=== PATIENT | male | born 1960 | race Caucasian/White ===

== ENCOUNTER 2021-12-22 23:09 | Inpatient (IN) | payer OTHER ==
[~2021-12-22] VITALS: Ht 182.9 cm; Wt 105.7 kg
[2021-12-22 23:28] LABS: HEMOGLOBIN 15.4 gm/dl (14.0-17.5); RED BLOOD COUNT 5.13 M/UL (4.20-5.50); WHITE BLOOD COUNT 14.8 K/UL (4.5-11.0)
[2021-12-23 00:07] LABS: BUN/CREATININE RATIO 11 (0-10)
== END 2021-12-23 07:05 | disposition expired | DRG 871 ==
LOC: ER1 23:09 → CCU 12-23 02:06 → CDU 12-23 02:06 → CCU 12-23 03:50
PROVIDERS: Student in an Organized Health Care Education/Training Program; ADMIT Internal Medicine
PROC: 5A12012 Performance of Cardiac Output, Single, Manual (ICD-10-PCS; principal; 2021-12-23)
PROC: 0BH17EZ Insertion of Endotracheal Airway into Trachea, Via Natural or Artificial Opening (ICD-10-PCS; 2021-12-23)
PROC: 5A1935Z Respiratory Ventilation, Less than 24 Consecutive Hours (ICD-10-PCS; 2021-12-23)
PROC: 3E043XZ Introduction of Vasopressor into Central Vein, Percutaneous Approach (ICD-10-PCS; 2021-12-23)
PROC: 3E03329 Introduction of Other Anti-infective into Peripheral Vein, Percutaneous Approach (ICD-10-PCS; 2021-12-23)
DX: A41.9 Sepsis, unspecified organism (principal); R65.21 Severe sepsis with septic shock; Z66 Do not resuscitate; Z20.822 Contact with and (suspected) exposure to COVID-19; J96.00 Acute respiratory failure, unspecified whether with hypoxia or hypercapnia; I21.4 Non-ST elevation (NSTEMI) myocardial infarction; I46.8 Cardiac arrest due to other underlying condition; I49.01 Ventricular fibrillation; N17.9 Acute kidney failure, unspecified; W18.30XA Fall on same level, unspecified, initial encounter; S09.90XA Unspecified injury of head, initial encounter; S05.11XA Contusion of eyeball and orbital tissues, right eye, initial encounter; I25.10 Atherosclerotic heart disease of native coronary artery without angina pectoris; E11.9 Type 2 diabetes mellitus without complications; Z95.810 Presence of automatic (implantable) cardiac defibrillator; Z79.4 Long term (current) use of insulin
CPT/HCPCS: 31500; 36600; 70450; 71045; 80053; 80061; 81001; 82550; 82553; 82803; 83036; 83605; 83735; 84484; 85025; 85610; 85730; 87040; 92950; 93005; 94002; 96374; 99285; J0171; J0461; J1644; J1953; J2185; J2250; J2704; J3370; J7070; U0002